=== PATIENT | female | born 1965 | race Two or more races ===

== ENCOUNTER 2024-11-25 14:02 | Outpatient (AMB) | payer MEDICAID, SELFPAY ==
[2024-11-25 14:35] VITALS: BP 144/87; PULSE 102; RESP 18; TEMP 36.8; O2SAT 95; BMI 35.1
--- NOTE | 2024-11-25 14:35 | ORTHONT_ITS ---
Vital signs 11/25/24 14:35 Height 1.5 m Height Method Stated Weight 78.925 kg Weight Measurement Method Standing Scale BMI 35.1 BP 144/87 H Blood Pressure Source Automatic Cuff Blood Pressure Location Left Upper Arm Position Sitting Respiration 18 Pulse 102 H Pulse Source Monitor Temp 98.3 F Temp Source Temporal Artery Scan Pulse Oximetry (%) 95 Oxygen Delivery Method Room Air Med/Allergies Allergies & Medications Allergies No Known Allergies Allergy (Verified 11/25/24 14:38) Medication Reconciliation No Known Home Medications 11/25/24 [History Confirmed 11/25/24] Exam Exam Patient is in no acute distress and is cooperative with the examination today. Breathing is nonlabored. Patient has a normal mood and affect. The patient has a gait that is nonantalgic Bilateral extremities were evaluated and demonstrates sensation intact to light touch. Palpable pedal pulses are present. No significant edema is present. Bilateral hips were examined. The patient has no pain with log roll of the hips. Internal rotation to 30 degrees and external rotation to 30 degrees is painless. Negative FADIR. Right knee was examined today. The right knee is in reasonable alignment. Range of motion from 0-120 degrees. Knee is stable to varus and valgus as well as AP translation with <5mm. Patient has a negative McMurrays. There is no pain with patellofemoral compression and no crepitus noted. The knee is nontender to palpation. Left knee was examined today. The left knee is in neutral alignment. Range of motion from 0-120 degrees. Knee is stable to varus and valgus as well as AP translation with <5mm. Patient has a negative McMurrays. There is no pain with patellofemoral compression and no crepitus noted. The knee is nontender to palpation 5 inches below the joint line well inferior to the tibial tubercle X-rays of the left [facility] Demonstrates mild arthritis of the left knee. She is an MRI which demonstrates degenerative changes. Assessment and Plan Problem List (1) Arthritis of left knee: Status: Acute Plan: Patient is a 59-year-old female who is here for left knee pain. The patient is asking me for disability and she has very minimal arthritis and I discussed with her that I cannot give her this. Her pain is actually well below her knee and I do think it is likely a vein that is causing the pain. Her x-rays look good. We will get weightbearing x-rays to see if we are missing anything. She appears to have valgus alignment of her knees. 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 Intake Visit Data Collection New Patient or Established: New Patient (never been to [facility]) Reason for Visit:: LEFT KNEE OA/MENISCUS TEAR Seen by Clinical Staff ONLY (RN/MA): No PCP or OBGYN visit in last 3 months: Yes Hx Now: No Do You Feel Safe at Home: Yes Authorities Contacted: N/A Questionairres Past Medical History Past Medical History Have you ever been diagnosed with any of the following: Subjective Visit Visit for: new patient and knee Immunization / Flu Flu Vaccine in the Last 12 Months: Yes Flu Vaccine Exclusion Criteria: Already Received History of Present Illness Chief complaint: left knee pain Date of injury / onset of symptoms: 3 MONTHS Patient is a 59-year-old female with left knee pain. She points to an area that is actually 5 inches below the knee. She apparently has a tibial change. She is using a walker. She is asking us repeatedly for disability. She has not had any conservative treatment. She has not had any injections or physical therapy Pain Pain level (0-10): 10 Pain duration: ALL DAY Pain location: anterior Pain quality: burning and other (specify) (SWELLING) Pain timing: stairs Ambulatory data Ambulatory device: walker Treatments Number of previous injections: 0 Improvement with previous injections: No Number of Physical Therapy sessions: 0 Improvement with PT: No Improvement with NSAIDS: yes (IBUPROFEN) Review of Systems Review of Systems: All systems negative unless otherwise noted in HPI.
--- NOTE | 2024-11-25 15:05 | XR_ITS ---
Examination: Bilateral AP knee single view Left knee PA lateral axial 3 views TECHNIQUE: Bilateral AP knees standing single view Left knee standing PA flexion single view standing lateral single view axial left knee single view total 4 views Date and time: November 25, 2024 1524 hours INDICATIONS: Chronic knee pain years FINDINGS: Mild narrowing medial joint space right knee. 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
== END 2024-11-25 15:12 | disposition home or self-care (01) ==
PROVIDERS: PCP Nurse Practitioner; Referring Provider Nurse Practitioner; Supervising Provider Orthopaedic Surgery Adult Reconstructive Orthopaedic Surgery; Visit Provider Orthopaedic Surgery Adult Reconstructive Orthopaedic Surgery
DX: M17.12 Unilateral primary osteoarthritis, left knee (principal); M25.562 Pain in left knee
CPT/HCPCS: 73564; 99204; G0463

== ENCOUNTER 2024-12-09 15:09 | Outpatient (AMB) | payer MEDICAID, SELFPAY ==
--- NOTE | 2024-12-09 15:17 | ORTHONT_ITS ---
Vital signs 12/09/24 15:21 Height 1.5 m Height Method Measured Weight 80.824 kg Weight Measurement Method Standing Scale BMI 35.9 BP 158/81 H Blood Pressure Source Automatic Cuff Blood Pressure Location Left Upper Arm Position Sitting Respiration 20 Pulse 102 H Pulse Source Monitor Temp 98.1 F Temp Source Temporal Artery Scan Pulse Oximetry (%) 94 L Oxygen Delivery Method Room Air Med/Allergies Allergies & Medications Allergies No Known Allergies Allergy (Verified 12/09/24 15:26) Medication Reconciliation No Known Home Medications 11/25/24 [History Confirmed 12/09/24] Exam Exam Patient is in no acute distress and is cooperative with the examination today. Breathing is nonlabored. Patient has a normal mood and affect. The patient has a gait that is nonantalgic Bilateral extremities were evaluated and demonstrates sensation intact to light touch. Palpable pedal pulses are present. No significant edema is present. Bilateral hips were examined. The patient has no pain with log roll of the hips. Internal rotation to 30 degrees and external rotation to 30 degrees is painless. Negative FADIR. Right knee was examined today. The right knee is in reasonable alignment. Range of motion from 0-120 degrees. Knee is stable to varus and valgus as well as AP translation with <5mm. Patient has a negative McMurrays. There is no pain with patellofemoral compression and no crepitus noted. The knee is nontender to palpation. Left knee was examined today. The left knee is in neutral alignment. Range of motion from 0-120 degrees. Knee is stable to varus and valgus as well as AP translation with <5mm. Patient has a negative McMurrays. There is no pain with patellofemoral compression and no crepitus noted. The knee is nontender to palpation 5 inches below the joint line well inferior to the tibial tubercle Xrays demonstrate moderate arthritis of the left knee Assessment and Plan Problem List (1) Arthritis of left knee: Status: Acute Plan: Patient is a 59-year-old female who is here for left knee pain. The patient is asking me for disability and she has moderate arthritis and I discussed with her that I cannot give her this. We discussed the natural history of arthritis in great detail today. We discussed a cortisone injection as a reasonabel option Recommend knee cortisone injection as patient would like to proceed with conservative treatment at this time. The risks and benefits of the procedure were reviewed with the patient and patient gave verbal consent to continue with the procedure. Procedure: performed by Dr. Sahu Using sterile technique the left knee was thoroughly prepped with alcohol, and approximately 1 cc of Depo-Medrol 80mg/mL and 4 cc of 0.2% ropivacaine was injected without resistance into the me dial tibial femoral joint space. The patient tolerated the procedure. Office Procedures GNS Level of Care Nursing/Assessment Patient Status: Established Patient Nursing Assessment/Reassesment: Medication Reconciliation, Orthostatic Vitals, Update PMH in EMR and Vital Signs Coordination of Care: Complex Care and Chronic Disease 1-5, Education Complex Pt/Fam, Consent,records obtained, informed consent, Results/Orders obtained and Staff clarify orders Special Needs: Language special needs Established Patient Charge Established Patient Point Assignment: 105 Established Patient Point Charge: EP Level 3 (80-115) Surgical Proc/IM SQ injection Major Surgical Procedure: Yes (KNEE INJECTION) Medication Given Medication Given Medication Given: Yes Documented Dose Given: 1 Route: Infiitration Medication Given Medication Given Medication Given: Yes Documented Dose Given: 4 Route: Infiitration Office Meds methylprednisolone acetate 80 mg/mL suspension for injection Performing Provider: Thiago Sahu MD Performing Location: [facility] Administered by: Thiago Sahu MD on 12/09/24 15:38 Dose Route Admin Location Dispensed Lot Number Expiration Date [facility] Manager [employer] 80 mg intra-articular KNEE 1 mL [id number] 09/20/26 [address]-8 [facility] ropivacaine (PF) 2 mg/mL (0.2 %) injection solution Performing Provider: Thiago Sahu MD Performing Location: [facility] Administered by: Thiago Sahu MD on 12/09/24 15:38 Dose Route Admin Location Dispensed Lot Number Expiration Date [facility] Manager [employer] 20 mL Infiltration KNEE 20 mL [id number] 03/22/26 95608-058-34 [facility] Intake Visit Data Collection New Patient or Established: Established Patient (seen at [facility] within 3 years) Reason for Visit:: LEFT KNEE XRAY RESULTS Seen by Clinical Staff ONLY (RN/MA): No Developmental Specialist Required: Yes PCP or OBGYN visit in last 3 months: Yes Hx Now: No Do You Feel Safe at Home: Yes Authorities Contacted: N/A Questionairres Past Medical History Past Medical History Have you ever been diagnosed with any of the following: Subjective Visit Visit for: follow up visit and knee Immunization / Flu Flu Vaccine in the Last 12 Months: Yes Flu Vaccine Exclusion Criteria: Already Received History of Present Illness Chief complaint: left knee pain/XRAY RESULTS Date of injury / onset of symptoms: 3 MONTHS Patient is a 59-year-old female with left knee pain. She points to an area that is actually 5 inches below the knee. She is using a walker. She is asking us repeatedly for disability. She has not had any conservative treatment. She has not had any injections or physical therapy. Personal History Red flag PMH: none BMI Counceling provided: Yes Pain Pain level (0-10): 10 Pain duration: ALL DAY Pain location: anterior Pain quality: burning and other (specify) (SWELLING) Pain timing: stairs Ambulatory data Ambulatory device: walker Treatments Number of previous injections: 0 Improvement with previous injections: No Number of Physical Therapy sessions: 0 Improvement with PT: No Improvement with NSAIDS: yes (IBUPROFEN) Review of Systems Review of Systems: All systems negative unless otherwise noted in HPI.
[2024-12-09 15:21] VITALS: BP 158/81; PULSE 102; RESP 20; TEMP 36.7; O2SAT 94; BMI 35.9
== END 2024-12-09 15:47 | disposition home or self-care (01) ==
PROVIDERS: PCP Nurse Practitioner; Referring Provider Nurse Practitioner; Supervising Provider Orthopaedic Surgery Adult Reconstructive Orthopaedic Surgery; Visit Provider Orthopaedic Surgery Adult Reconstructive Orthopaedic Surgery
DX: M17.12 Unilateral primary osteoarthritis, left knee (principal); M25.562 Pain in left knee
CPT/HCPCS: 20610; 99213; J1010; J2795; G0463